=== PATIENT | male | born 1955 | race Caucasian/White ===

== ENCOUNTER → 2020-04-24 | Outpatient (CLI) | payer OTHER ==
[~2020-04-24] MED LIST: OMNIPAQUE 350 MG/ML, 150 ML BOTTLE ONE
== END | disposition home or self-care (01) ==
LOC: CFH 10:04
PROVIDERS: ATTEND Internal Medicine Cardiovascular Disease
DX: I48.0 Paroxysmal atrial fibrillation (principal)
CPT/HCPCS: 71046; 75572; Q9967

== ENCOUNTER 2020-05-01 11:47 | Observation (INO) | payer OTHER ==
[~2020-05-01] VITALS: Ht 185.4 cm; Wt 85.3 kg
[2020-05-01] MEDS ORDERED: DEXMEDETOMIDINE 200 MCG/2 ML ONE (12:21)
[2020-05-01] MEDS ORDERED: SODIUM CHLORIDE 0.9% 1,000 ML IV SCH (12:30)
[2020-05-01] MEDS ORDERED: Calcium PO (12:39)
[2020-05-01] MEDS ORDERED: EZET10TA70 PO (12:39)
[2020-05-01] MEDS ORDERED: ATOR80TA PO (12:39)
[2020-05-01] MEDS ORDERED: Vitamin D PO (12:39)
[2020-05-01] MEDS ORDERED: LIDOCAINE-MPF 2% ,5ML ONE (12:39)
[2020-05-01] MEDS ORDERED: ASPI81TA45 PO (12:39)
[2020-05-01 12:40] VITALS: BP 129/87
[2020-05-01] MEDS ORDERED: FENTANYL PF 250 MCG/5ML ONE (13:44)
[2020-05-01] MEDS ORDERED: MIDAZOLAM 1 MG/ML, 2ML ONE (13:44)
[2020-05-01] MEDS ORDERED: HEPARIN 1,000 UNITS/ML, 10ML ONE ×3 (13:46→15:52)
[2020-05-01] MEDS ORDERED: ACETAMINOPHEN 325 MG TABLET PO PRN ×2 (14:00→17:00)
[2020-05-01] MEDS ORDERED: hydrALAzine 20 MG/ML, 1ML IV PRN (14:00)
[2020-05-01] MEDS ORDERED: OXYcodone 5 MG/5 ML ORAL.SOL UDC PO PRN (14:00)
[2020-05-01] MEDS ORDERED: EPHEDRINE 50 MG/ML, 1ML IVPush PRN (14:00)
[2020-05-01] MEDS ORDERED: PROMETHAZINE 25 MG/ML, 1ML IVPush PRN (14:00)
[2020-05-01] MEDS ORDERED: LABETALOL 5MG/ML, 20ML IV PRN (14:00)
[2020-05-01] MEDS ORDERED: ONDANSETRON 2MG/ML, 2ML IVPush PRN (14:00)
[2020-05-01] MEDS ORDERED: MEPERIDINE/PF 25MG/0.5ML IVPush PRN (14:00)
[2020-05-01] MEDS ORDERED: HYDROmorphone 1 MG/ML, 1ML INJ IVPush PRN (14:00)
[2020-05-01] MEDS ORDERED: LIDOCAINE 2%, 20ML ONE (14:36)
[2020-05-01] MEDS ORDERED: SUGAMMADEX 200 MG/2 ML IVPush ONE (14:40)
[2020-05-01] MEDS ORDERED: ISOPROTERENOL 0.2MG/ML, 5ML ONE ×2 (14:58→16:22)
[2020-05-01] MEDS ORDERED: PHENYLEPHRINE 10 MG/ML ONE ×2 (15:43→15:47)
[2020-05-01] MEDS ORDERED: ONDANSETRON 2MG/ML, 2ML ONE (15:43)
[2020-05-01] MEDS ORDERED: ROCURONIUM 10MG/ML,5ML ONE (15:43)
[2020-05-01] MEDS ORDERED: SUCCINYLCHOLINE 20 MG/ML, 10ML ONE (15:43)
[2020-05-01] MEDS ORDERED: DEXAMETHASONE 4 MG/ML, 1ML ONE (15:43)
[2020-05-01] MEDS ORDERED: PROPOFOL 10 MG/ML, 20ML ONE (15:43)
[2020-05-01] MEDS ORDERED: APIXABAN 5 MG TABLET ONE (16:59)
[2020-05-01] MEDS: FENTANYL PF 100 MCG/2ML IV PRN ×2 (17:15→17:40)
[2020-05-01] MEDS ORDERED: FENTANYL PF 100 MCG/2ML ONE (17:16)
[2020-05-01] MEDS ORDERED: PROMETHAZINE 25 MG/ML, 1ML ONE (17:21)
[2020-05-01] MEDS ORDERED: DIAZEPAM 5 MG/ML, 2ML ONE (17:32)
[2020-05-01] MEDS ORDERED: DIAZEPAM 5 MG/ML, 2ML IVPush PRN (18:30)
[2020-05-01] MEDS: APIXABAN 5 MG TABLET PO SCH (18:46)
[2020-05-01 19:24] VITALS: BP 111/74
[2020-05-01] MEDS ORDERED: ATORVASTATIN 80 MG TABLET PO SCH (21:00)
[2020-05-01] MEDS ORDERED: IBUPROFEN 200 MG TABLET ONE (22:15)
[2020-05-01] MEDS: COLCHICINE 0.6 MG CAPSULE PO SCH (22:19)
[2020-05-01] MEDS ORDERED: IBUPROFEN 600 MG TABLET PO PRN (22:30)
[2020-05-01] MEDS ORDERED: ZOLPIDEM 10MG TABLET PO PRN (22:30)
[2020-05-02 00:41] VITALS: BP 98/61
[2020-05-02 07:10] VITALS: BP 111/67
[2020-05-02] MEDS ORDERED: APIX5TAB PO (08:21)
[2020-05-02] MEDS ORDERED: COLC0.6C3 PO (08:21)
[2020-05-02] MEDS: APIXABAN 5 MG TABLET PO SCH (08:35)
[2020-05-02] MEDS: COLCHICINE 0.6 MG CAPSULE PO SCH (08:35)
[2020-05-02] MEDS ORDERED: EZETIMIBE 10 MG TABLET PO SCH (09:00)
[2020-05-02] MEDS ORDERED: FLU VACC QS2020-21(6MOS UP)/PF 60MCG/0.5 ML SYR IM-VACC ONE (10:30)
== END 2020-05-02 11:15 | disposition home or self-care (01) ==
LOC: CACL 11:47 → 5SO 18:55 → CACL 23:26 → 5SO 23:27 → DCLOUNGE 05-02 11:07
PROVIDERS: ADMIT Internal Medicine Cardiovascular Disease; ATTEND Internal Medicine Cardiovascular Disease
DX: I48.91 Unspecified atrial fibrillation (principal); Z20.828 Contact with and (suspected) exposure to other viral communicable diseases; I48.3 Typical atrial flutter; E78.5 Hyperlipidemia, unspecified; Z79.899 Other long term (current) drug therapy; Z23 Encounter for immunization
CPT/HCPCS: 36415; 85347; 87635; 90471; 90686; 93308; 93312; 93321; 93325; 93613; 93655; 93656; 93662; C1730; C1732; C1759; C1766; C1893; C1894; G0378; J0330; J1100; J1644; J2250; J2370; J2405; J2550; J2704; J3010; J3490